=== PATIENT | female | born 1975 | race Caucasian/White ===

== ENCOUNTER 2020-12-07 22:43 | Observation (INO) ==
[2020-12-08 01:57] LABS: VBG HCO3 28 mEq/L (21-27); VBG PCO2 52 mmHg (41-51); VBG PH 7.35 pH Units (7.32-7.42); VBG PO2 36 mmHg (25-50)
[2020-12-08 01:58] LABS: Basophils # 0.1 K/mcL (0.0-0.2); Basophils % 0.7 %; Eosinophils # 0.1 K/mcL (0.0-0.6); Eosinophils % 0.5 %; Hematocrit 47.1 % (35.3-44.9); Hemoglobin 15.9 g/dL (11.5-15.4); Immature Granulocytes % 1.4 % (0-4); Lymphocytes % 27.7 %; Mean Corpuscular HGB Conc 33.8 g/dL (31.6-35.5); Mean Corpuscular Hemoglobin 29.2 pg (28.0-33.3); Mean Corpuscular Volume 86.4 fL (83.0-100.0); Monocytes # 1.1 K/mcL (0.0-1.3); Monocytes % 5.9 %; Neutrophils # 11.5 K/mcL (1.6-8.9); Platelet Count 335 K/mcL (140-400); Red Blood Count 5.45 M/mcL (3.82-4.97); Red Cell Distribution Width 11.9 % (11.5-14.5); Segmented Neutrophils % 63.8 %
[2020-12-08] MEDS ORDERED: 0.9 % Sodium Chloride 1,000 ML IVC ONE (02:00)
[2020-12-08 02:15] LABS: BUN/Creatinine Ratio 20 (6-26); Blood Urea Nitrogen 16 mg/dL (6-20); Calcium 9.1 mg/dL (8.6-10.3); Carbon Dioxide 28 mEq/L (23-29); Chloride 93 mEq/L (98-107); Glucose 408 mg/dL (70-105); Osmolality,Calculated 296 (280-300); Potassium 3.8 mEq/L (3.5-5.1); Sodium 134 mEq/L (136-145); eGFR For African Americans > 60 (> 60); eGFR For Non-African Americans > 60 (> 60)
[2020-12-08 02:22] LABS: Platelet Estimate Normal (Normal)
[2020-12-08] MEDS ORDERED: Cefepime HCl 2,000 MG in Water for inj. (sterile) 20 ML IVP ONE (03:29)
[2020-12-08] MEDS ORDERED: Vancomycin 2,000 MG/520 ML IV.SOLN IVPB ONE (04:00)
[2020-12-08] MEDS ORDERED: Naloxone 0.4 MG/ML INJ IVP PRN (05:02)
[2020-12-08] MEDS ORDERED: Melatonin 3 MG TABLET PO PRN (05:02)
[2020-12-08] MEDS ORDERED: Ondansetron 4 MG/2 ML VIAL IVP PRN (05:02)
[2020-12-08] MEDS ORDERED: *HR* Dextrose 50 % in Water (Vial) 50 ML VIAL IVP PRN (05:08)
[2020-12-08] MEDS ORDERED: D5% in Water 1,000 ML IVC PRN (05:08)
[2020-12-08] MEDS ORDERED: Dextrose Gel 15 GM/37.5 ML TUBE PO PRN ×2 (05:08)
[2020-12-08] MEDS ORDERED: 0.9 % Sodium Chloride 500 ML IVC ONE (05:13)
[2020-12-08 07:06] LABS: Bilirubin,Urine Negative (Negative); Blood,Urine Negative (Negative); Clarity,Urine Clear (Clear); Color,Urine Light-Yellow (Yellow); Glucose,Urine (UA) >=1000 mg/dL (Normal); Ketones,Urine Trace mg/dL (Negative); Leukocyte Esterase,Urine Negative (Negative); Mucus,Urine Few per lpf (None-Few); Nitrite,Urine Negative (Negative); Protein,Urine Trace mg/dL (Neg-Trace); RBC,Urine 0-3 per hpf (0-3); Specific Gravity,Urine > 1.030 (1.010-1.025); Squamous Epithelial Cell,Urine Few per hpf (None-Few); Urobilinogen,Urine Normal (Normal); WBC,Urine 0-3 per hpf (0-3)
[2020-12-08] MEDS: Insulin LISPRO 300 UNITS/3 ML VIAL SUBQ SCH ×6 (07:06→23:54)
[2020-12-08] MEDS: Insulin DETEMIR 100 UNIT/ML X5UNITS SUBQ SCH ×2 (07:06→21:02)
[2020-12-08 07:08] LABS: Hemoglobin 15.4 g/dL (11.5-15.4); Mean Corpuscular HGB Conc 33.5 g/dL (31.6-35.5); Mean Corpuscular Hemoglobin 29.7 pg (28.0-33.3); Mean Corpuscular Volume 88.6 fL (83.0-100.0); Mean Platelet Volume 9.8 fL (9.4-12.4); Platelet Count 248 K/mcL (140-400); Red Blood Count 5.19 M/mcL (3.82-4.97); Red Cell Distribution Width 11.9 % (11.5-14.5); White Blood Count 14.7 K/mcL (4.3-11.1)
[2020-12-08 07:31] LABS: BUN/Creatinine Ratio 20 (6-26); Blood Urea Nitrogen 13 mg/dL (6-20); Calcium 8.5 mg/dL (8.6-10.3); Carbon Dioxide 24 mEq/L (23-29); Chloride 98 mEq/L (98-107); Glucose 301 mg/dL (70-105); Osmolality,Calculated 295 (280-300); Potassium 3.6 mEq/L (3.5-5.1); Sodium 137 mEq/L (136-145); eGFR For African Americans > 60 (> 60); eGFR For Non-African Americans > 60 (> 60)
[2020-12-08] MEDS ORDERED: Piperacillin/Tazobactam 3.375 GM in 0.9 % Sodium Chloride Mini Bag 100 ML IVPB SCH (08:00)
[2020-12-08 10:03] LABS: C-Reactive Protein 26 mg/L (Less than 10)
[2020-12-08] MEDS: Cefepime HCl 2,000 MG in 0.9 % Sodium Chloride Mini Bag 100 ML IVPB SCH (16:59)
[2020-12-08] MEDS: Vancomycin 1,500 MG/265 ML IV.SOLN IVPB SCH (17:42)
[2020-12-09] MEDS: Cefepime HCl 2,000 MG in 0.9 % Sodium Chloride Mini Bag 100 ML IVPB SCH ×2 (04:28→15:14)
[2020-12-09] MEDS: Vancomycin 1,500 MG/265 ML IV.SOLN IVPB SCH ×2 (05:01→16:30)
[2020-12-09] MEDS: Insulin LISPRO 300 UNITS/3 ML VIAL SUBQ SCH ×5 (05:40→21:41)
[2020-12-09 10:15] LABS: Hematocrit 42.3 % (35.3-44.9); Hemoglobin 14.1 g/dL (11.5-15.4); Mean Corpuscular HGB Conc 33.3 g/dL (31.6-35.5); Mean Corpuscular Hemoglobin 29.4 pg (28.0-33.3); Mean Corpuscular Volume 88.1 fL (83.0-100.0); Platelet Count 243 K/mcL (140-400); Red Cell Distribution Width 11.9 % (11.5-14.5); White Blood Count 10.2 K/mcL (4.3-11.1)
[2020-12-09 10:31] LABS: BUN/Creatinine Ratio 19 (6-26); Blood Urea Nitrogen 11 mg/dL (6-20); Calcium 8.1 mg/dL (8.6-10.3); Carbon Dioxide 27 mEq/L (23-29); Chloride 103 mEq/L (98-107); Glucose 225 mg/dL (70-105); Magnesium 1.7 mg/dL (1.6-2.6); Osmolality,Calculated 288 (280-300); Potassium 3.7 mEq/L (3.5-5.1); Sodium 136 mEq/L (136-145); eGFR For African Americans > 60 (> 60); eGFR For Non-African Americans > 60 (> 60)
[2020-12-09] MEDS ORDERED: diazePAM 5 MG TABLET PO PRN (13:04)
[2020-12-09] MEDS: Gabapentin 400 MG CAPSULE PO SCH ×2 (15:07→21:41)
[2020-12-09] MEDS: Vancomycin 1,750 MG/517.5 ML IV.SOLN IVPB SCH (17:40)
[2020-12-09] MEDS ORDERED: Insulin DETEMIR 100 UNIT/ML X5UNITS SUBQ SCH (21:00)
[2020-12-10] MEDS: Insulin LISPRO 300 UNITS/3 ML VIAL SUBQ SCH ×5 (00:16→16:57)
[2020-12-10 03:40] LABS: Hematocrit 41.1 % (35.3-44.9); Hemoglobin 13.6 g/dL (11.5-15.4); Mean Corpuscular HGB Conc 33.1 g/dL (31.6-35.5); Mean Corpuscular Hemoglobin 29.1 pg (28.0-33.3); Mean Platelet Volume 9.9 fL (9.4-12.4); Platelet Count 237 K/mcL (140-400); Red Blood Count 4.67 M/mcL (3.82-4.97); Red Cell Distribution Width 11.9 % (11.5-14.5); White Blood Count 12.2 K/mcL (4.3-11.1)
[2020-12-10] MEDS: Cefepime HCl 2,000 MG in 0.9 % Sodium Chloride Mini Bag 100 ML IVPB SCH ×2 (04:54→15:48)
[2020-12-10 04:59] LABS: BUN/Creatinine Ratio 28 (6-26); Blood Urea Nitrogen 16 mg/dL (6-20); Calcium 8.2 mg/dL (8.6-10.3); Carbon Dioxide 24 mEq/L (23-29); Chloride 103 mEq/L (98-107); Glucose 233 mg/dL (70-105); Osmolality,Calculated 291 (280-300); Potassium 4.1 mEq/L (3.5-5.1); Sodium 136 mEq/L (136-145); eGFR For African Americans > 60 (> 60); eGFR For Non-African Americans > 60 (> 60)
[2020-12-10] MEDS: Vancomycin 1,750 MG/517.5 ML IV.SOLN IVPB SCH ×2 (05:38→16:46)
[2020-12-10] MEDS: Gabapentin 400 MG CAPSULE PO SCH ×2 (08:50→14:33)
[2020-12-10] MEDS ORDERED: Aspirin Enteric Coated 81 MG Tablet PO SCH (09:00)
[2020-12-10] MEDS ORDERED: lisinopriL 5 MG TABLET PO SCH (09:00)
[2020-12-10 14:47] VITALS: BP 139/82
== END 2020-12-10 19:20 | disposition home or self-care (01) ==
LOC: EMEROOARM 22:43 → 3ANU 22:43 → SUATTDRO 12-08 05:02 → 3ANU 12-08 06:11
PROVIDERS: ADMIT Student in an Organized Health Care Education/Training Program; ATTEND Internal Medicine

== ENCOUNTER 2021-06-13 12:05 | Inpatient (IN) ==
[2021-06-13] MEDS ORDERED: Ipratropium/Albuterol Neb 3 ML IH ONE (12:20)
[2021-06-13] MEDS ORDERED: Acetaminophen 325 MG TABLET PO ONE (12:21)
[2021-06-13] MEDS ORDERED: 0.9 % Sodium Chloride 500 ML IVC ONE (12:21)
[2021-06-13 13:15] LABS: Basophils % 0.3 %; Hematocrit 50.6 % (35.3-44.9); Hemoglobin 17.1 g/dL (11.5-15.4); Immature Granulocytes % 0.9 % (0-4); Lymphocytes # 1.1 K/mcL (0.6-4.6); Mean Corpuscular HGB Conc 33.8 g/dL (31.6-35.5); Mean Corpuscular Hemoglobin 28.4 pg (28.0-33.3); Mean Corpuscular Volume 84.1 fL (83.0-100.0); Monocytes # 0.6 K/mcL (0.0-1.3); Monocytes % 9.7 %; Neutrophils # 4.7 K/mcL (1.6-8.9); Platelet Count 292 K/mcL (140-400); Red Blood Count 6.02 M/mcL (3.82-4.97); Red Cell Distribution Width 11.9 % (11.5-14.5); Segmented Neutrophils % 72.1 %; White Blood Count 6.5 K/mcL (4.3-11.1)
[2021-06-13 13:57] LABS: Alanine Aminotransferase 11 Units/L (7-52); Alkaline Phosphatase 74 Units/L (34-104); Aspartate Amino Transferase 20 Units/L (13-39); BUN/Creatinine Ratio 17 (6-26); Bilirubin,Direct 0.1 mg/dL (0.0-0.2); Bilirubin,Indirect 0.3 mg/dL (0.0-1.0); Bilirubin,Total 0.4 mg/dL (0.3-1.0); Blood Urea Nitrogen 14 mg/dL (6-20); Carbon Dioxide 21 mEq/L (23-29); Chloride 97 mEq/L (98-107); Globulin 3.9 g/dL (2.4-3.5); Glucose 359 mg/dL (70-105); Osmolality,Calculated 293 (280-300); Potassium 3.9 mEq/L (3.5-5.1); Sodium 134 mEq/L (136-145); Total Protein 7.9 g/dL (6.4-8.9); Troponin I < 0.03 ng/mL (< 0.04); eGFR For African Americans > 60 (> 60); eGFR For Non-African Americans > 60 (> 60)
[2021-06-13] MEDS ORDERED: Melatonin 3 MG TABLET PO PRN (14:38)
[2021-06-13] MEDS ORDERED: Naloxone 0.4 MG/ML INJ IVP PRN (14:38)
[2021-06-13] MEDS ORDERED: *HR* Dextrose 50 % in Water (Syg) 50 ML SYRINGE IVP PRN (14:45)
[2021-06-13] MEDS ORDERED: Insulin DETEMIR 100 UNIT/ML X5UNITS SUBQ SCH (14:45)
[2021-06-13] MEDS ORDERED: D5% in Water 1,000 ML IVC PRN (14:45)
[2021-06-13] MEDS ORDERED: Dextrose Gel 15 GM/37.5 ML TUBE PO PRN ×2 (14:45)
[2021-06-13 15:07] LABS: C-Reactive Protein 105 mg/L (Less than 10)
[2021-06-13] MEDS ORDERED: *HR* OxyCODONE/APAP 5/325 TABLET PO ONE (15:13)
[2021-06-13 15:30] LABS: Bacteria,Urine Few per hpf (None-Few); Bilirubin,Urine Negative (Negative); Blood,Urine Large (Negative); Clarity,Urine Clear (Clear); Color,Urine Light-Yellow (Yellow); Glucose,Urine (UA) >=1000 mg/dL (Normal); Ketones,Urine >150 mg/dL (Negative); Leukocyte Esterase,Urine Negative (Negative); Mucus,Urine Few per lpf (None-Few); Nitrite,Urine Negative (Negative); Protein,Urine >=300 mg/dL (Neg-Trace); RBC,Urine 50-100 per hpf (0-3); Specific Gravity,Urine > 1.030 (1.010-1.025); Squamous Epithelial Cell,Urine Few per hpf (None-Few); Urobilinogen,Urine Normal (Normal); WBC,Urine 0-3 per hpf (0-3)
[2021-06-13] MEDS: diazePAM 2 MG TABLET PO PRN (16:44)
[2021-06-13] MEDS: Insulin DETEMIR 100 UNIT/ML X5UNITS SUBQ SCH ×2 (18:31→19:19)
[2021-06-13] MEDS: Gabapentin 300 MG CAPSULE PO SCH ×2 (18:37→19:19)
[2021-06-13] MEDS: Insulin LISPRO 300 UNITS/3 ML VIAL SUBQ SCH ×2 (18:50→20:19)
[2021-06-14] MEDS: Acetaminophen 325 MG TABLET PO PRN (02:08)
[2021-06-14] MEDS: diazePAM 2 MG TABLET PO PRN (02:09)
[2021-06-14] MEDS ORDERED: *HR* Enoxaparin 40 MG/0.4 ML SYRINGE SQ SCH (06:00)
[2021-06-14] MEDS: Gabapentin 300 MG CAPSULE PO SCH ×3 (08:21→20:48)
[2021-06-14] MEDS: Insulin LISPRO 300 UNITS/3 ML VIAL SUBQ SCH ×4 (08:23→20:47)
[2021-06-14] MEDS: Insulin DETEMIR 100 UNIT/ML X5UNITS SUBQ SCH ×2 (08:23→20:47)
[2021-06-14] MEDS ORDERED: *HR* Labetalol 20 MG/4 ML SYRINGE IVP PRN (15:41)
[2021-06-14] MEDS: Ipratropium 1 PUFF INHALER IH SCH ×2 (15:53→19:56)
[2021-06-14] MEDS: *HR* Enoxaparin 40 MG/0.4 ML SYRINGE SQ SCH (17:49)
[2021-06-15] MEDS: Ipratropium 1 PUFF INHALER IH SCH ×7 (00:28→23:27)
[2021-06-15] MEDS: diazePAM 2 MG TABLET PO PRN ×2 (03:32→20:36)
[2021-06-15 03:33] LABS: Basophils % 0.4 %; Hemoglobin 16.9 g/dL (11.5-15.4); Immature Granulocytes % 0.8 % (0-4); Lymphocytes # 1.4 K/mcL (0.6-4.6); Mean Corpuscular HGB Conc 33.8 g/dL (31.6-35.5); Mean Corpuscular Volume 82.9 fL (83.0-100.0); Mean Platelet Volume 9.6 fL (9.4-12.4); Monocytes # 1.1 K/mcL (0.0-1.3); Platelet Count 360 K/mcL (140-400); Red Blood Count 6.03 M/mcL (3.82-4.97); Segmented Neutrophils % 75.8 %
[2021-06-15 03:35] LABS: Neutrophils # 8.3 K/mcL (1.6-8.9)
[2021-06-15 04:10] LABS: Alanine Aminotransferase 8 Units/L (7-52); Albumin 3.6 g/dL (3.5-5.7); Alkaline Phosphatase 63 Units/L (34-104); Aspartate Amino Transferase 14 Units/L (13-39); BUN/Creatinine Ratio 23 (6-26); Bilirubin,Total 0.5 mg/dL (0.3-1.0); Blood Urea Nitrogen 21 mg/dL (6-20); Calcium 9.1 mg/dL (8.6-10.3); Carbon Dioxide 23 mEq/L (23-29); Chloride 98 mEq/L (98-107); Globulin 3.7 g/dL (2.4-3.5); Glucose 325 mg/dL (70-105); Osmolality,Calculated 296 (280-300); Potassium 3.6 mEq/L (3.5-5.1); Sodium 135 mEq/L (136-145); Total Protein 7.3 g/dL (6.4-8.9); eGFR For African Americans > 60 (> 60); eGFR For Non-African Americans > 60 (> 60)
[2021-06-15] MEDS: *HR* Enoxaparin 40 MG/0.4 ML SYRINGE SQ SCH ×2 (05:55→17:14)
[2021-06-15] MEDS: Insulin LISPRO 300 UNITS/3 ML VIAL SUBQ SCH ×6 (07:49→21:14)
[2021-06-15] MEDS: Acetaminophen 325 MG TABLET PO PRN (07:49)
[2021-06-15] MEDS: Insulin DETEMIR 100 UNIT/ML X5UNITS SUBQ SCH ×3 (07:49→21:13)
[2021-06-15] MEDS: Gabapentin 300 MG CAPSULE PO SCH ×3 (07:49→20:35)
[2021-06-15] MEDS ORDERED: Dexamethasone Sodium Phos/PF 10 MG/ML VIAL IVP ONE (09:21)
[2021-06-15] MEDS ORDERED: Insulin DETEMIR 100 UNIT/ML X5UNITS SUBQ ONE (09:21)
[2021-06-15] MEDS: Dexamethasone Sodium Phos/PF 10 MG/ML VIAL IVP SCH (10:11)
[2021-06-15] MEDS ORDERED: Isovue-370 500 ML BOTTLE IVP ONE (13:56)
[2021-06-16] MEDS: Ipratropium 1 PUFF INHALER IH SCH ×5 (03:23→19:54)
[2021-06-16] MEDS: *HR* Enoxaparin 40 MG/0.4 ML SYRINGE SQ SCH ×2 (05:11→17:42)
[2021-06-16] MEDS: Gabapentin 300 MG CAPSULE PO SCH ×3 (08:17→21:43)
[2021-06-16] MEDS: Dexamethasone Sodium Phos/PF 10 MG/ML VIAL IVP SCH (08:18)
[2021-06-16] MEDS: Insulin LISPRO 300 UNITS/3 ML VIAL SUBQ SCH ×7 (08:18→21:45)
[2021-06-16] MEDS: Insulin DETEMIR 100 UNIT/ML X5UNITS SUBQ SCH ×2 (08:19→21:51)
[2021-06-16] MEDS ORDERED: Furosemide 20 MG/2 ML VIAL IVP ONE (09:00)
[2021-06-16 11:04] LABS: VBG HCO3 27 mEq/L (21-27); VBG PCO2 36 mmHg (41-51); VBG PH 7.49 pH Units (7.32-7.42); VBG PO2 69 mmHg (25-50)
[2021-06-16 11:13] LABS: Fibrinogen 578 mg/dL (169-393)
[2021-06-16 11:16] LABS: D-Dimer 447 ng/mLFEU (0-500)
[2021-06-16 11:24] LABS: BUN/Creatinine Ratio 28 (6-26); Blood Urea Nitrogen 18 mg/dL (6-20); Calcium 8.6 mg/dL (8.6-10.3); Carbon Dioxide 26 mEq/L (23-29); Chloride 97 mEq/L (98-107); Glucose 312 mg/dL (70-105); Magnesium 1.8 mg/dL (1.6-2.6); Osmolality,Calculated 292 (280-300); Phosphorous 2.5 mg/dL (2.7-4.5); Potassium 3.3 mEq/L (3.5-5.1); Sodium 134 mEq/L (136-145); eGFR For African Americans > 60 (> 60); eGFR For Non-African Americans > 60 (> 60)
[2021-06-16 11:42] LABS: Ferritin 664 ng/mL (10-120)
[2021-06-17] MEDS: Ipratropium 1 PUFF INHALER IH SCH ×7 (00:19→23:55)
[2021-06-17 03:20] LABS: BUN/Creatinine Ratio 25 (6-26); Blood Urea Nitrogen 19 mg/dL (6-20); C-Reactive Protein 19 mg/L (Less than 10); Calcium 8.8 mg/dL (8.6-10.3); Carbon Dioxide 28 mEq/L (23-29); Chloride 99 mEq/L (98-107); Glucose 183 mg/dL (70-105); Magnesium 1.9 mg/dL (1.6-2.6); Osmolality,Calculated 295 (280-300); Phosphorous 3.1 mg/dL (2.7-4.5); Potassium 3.2 mEq/L (3.5-5.1); Sodium 139 mEq/L (136-145); eGFR For African Americans > 60 (> 60); eGFR For Non-African Americans > 60 (> 60)
[2021-06-17] MEDS: *HR* Enoxaparin 40 MG/0.4 ML SYRINGE SQ SCH ×2 (05:56→17:40)
[2021-06-17] MEDS: Dexamethasone Sodium Phos/PF 10 MG/ML VIAL IVP SCH (08:58)
[2021-06-17] MEDS: diazePAM 2 MG TABLET PO PRN ×2 (08:58→17:40)
[2021-06-17] MEDS: lisinopriL 10 MG TABLET PO SCH (08:58)
[2021-06-17] MEDS: Gabapentin 300 MG CAPSULE PO SCH ×3 (08:58→20:51)
[2021-06-17] MEDS: Insulin LISPRO 300 UNITS/3 ML VIAL SUBQ SCH ×7 (09:00→20:49)
[2021-06-17] MEDS: Insulin DETEMIR 100 UNIT/ML X5UNITS SUBQ SCH ×2 (09:07→20:49)
[2021-06-17] MEDS: Acetaminophen 325 MG TABLET PO PRN (14:56)
[2021-06-18] MEDS: Ipratropium 1 PUFF INHALER IH SCH ×5 (03:37→21:17)
[2021-06-18 05:05] LABS: Basophils % 0.3 %; Hematocrit 44.8 % (35.3-44.9); Hemoglobin 15.4 g/dL (11.5-15.4); Immature Granulocytes % 0.9 % (0-4); Lymphocytes # 1.9 K/mcL (0.6-4.6); Lymphocytes % 18.4 %; Mean Corpuscular HGB Conc 34.4 g/dL (31.6-35.5); Mean Corpuscular Hemoglobin 28.9 pg (28.0-33.3); Mean Corpuscular Volume 84.1 fL (83.0-100.0); Mean Platelet Volume 10.3 fL (9.4-12.4); Monocytes # 0.9 K/mcL (0.0-1.3); Monocytes % 9.3 %; Neutrophils # 7.2 K/mcL (1.6-8.9); Platelet Count 352 K/mcL (140-400); Red Blood Count 5.33 M/mcL (3.82-4.97); Red Cell Distribution Width 11.9 % (11.5-14.5); Segmented Neutrophils % 71.1 %; White Blood Count 10.1 K/mcL (4.3-11.1)
[2021-06-18] MEDS: *HR* Enoxaparin 40 MG/0.4 ML SYRINGE SQ SCH ×2 (05:19→16:35)
[2021-06-18 05:24] LABS: BUN/Creatinine Ratio 23 (6-26); Blood Urea Nitrogen 16 mg/dL (6-20); Carbon Dioxide 26 mEq/L (23-29); Chloride 100 mEq/L (98-107); Glucose 229 mg/dL (70-105); Magnesium 1.9 mg/dL (1.6-2.6); Osmolality,Calculated 288 (280-300); Phosphorous 3.6 mg/dL (2.7-4.5); Potassium 3.5 mEq/L (3.5-5.1); Sodium 135 mEq/L (136-145); eGFR For African Americans > 60 (> 60); eGFR For Non-African Americans > 60 (> 60)
[2021-06-18] MEDS: Dexamethasone Sodium Phos/PF 10 MG/ML VIAL IVP SCH (07:43)
[2021-06-18] MEDS: lisinopriL 10 MG TABLET PO SCH (07:44)
[2021-06-18] MEDS: Insulin LISPRO 300 UNITS/3 ML VIAL SUBQ SCH ×9 (07:44→20:40)
[2021-06-18] MEDS: Gabapentin 300 MG CAPSULE PO SCH ×3 (07:44→20:39)
[2021-06-18] MEDS: Insulin DETEMIR 100 UNIT/ML X5UNITS SUBQ SCH ×2 (07:44→20:39)
[2021-06-18] MEDS: *HR* OxyCODONE/APAP 5/325 TABLET PO PRN (20:57)
[2021-06-19] MEDS: Ipratropium 1 PUFF INHALER IH SCH ×7 (00:12→23:44)
[2021-06-19] MEDS: *HR* Enoxaparin 40 MG/0.4 ML SYRINGE SQ SCH ×2 (06:23→16:58)
[2021-06-19 07:22] LABS: Fibrinogen 402 mg/dL (169-393)
[2021-06-19] MEDS: Insulin DETEMIR 100 UNIT/ML X5UNITS SUBQ SCH ×2 (07:24→20:02)
[2021-06-19] MEDS: Insulin LISPRO 300 UNITS/3 ML VIAL SUBQ SCH ×7 (07:24→20:58)
[2021-06-19] MEDS: Dexamethasone Sodium Phos/PF 10 MG/ML VIAL IVP SCH (07:24)
[2021-06-19] MEDS: lisinopriL 10 MG TABLET PO SCH (07:25)
[2021-06-19] MEDS: Gabapentin 300 MG CAPSULE PO SCH ×3 (07:25→20:01)
[2021-06-19 07:26] LABS: D-Dimer 286 ng/mLFEU (0-500)
[2021-06-19 07:40] LABS: BUN/Creatinine Ratio 23 (6-26); Blood Urea Nitrogen 15 mg/dL (6-20); Calcium 8.1 mg/dL (8.6-10.3); Carbon Dioxide 24 mEq/L (23-29); Chloride 98 mEq/L (98-107); Glucose 294 mg/dL (70-105); Lactate Dehydrogenase 234 Units/L (140-271); Magnesium 1.7 mg/dL (1.6-2.6); Osmolality,Calculated 288 (280-300); Phosphorous 3.1 mg/dL (2.7-4.5); Potassium 3.3 mEq/L (3.5-5.1); Sodium 133 mEq/L (136-145); eGFR For African Americans > 60 (> 60); eGFR For Non-African Americans > 60 (> 60)
[2021-06-19 07:44] LABS: Ferritin 458 ng/mL (10-120)
[2021-06-19] MEDS: Furosemide 20 MG/2 ML VIAL IVP SCH (22:33)
[2021-06-19] MEDS: *HR* OxyCODONE/APAP 5/325 TABLET PO PRN (22:42)
[2021-06-19] MEDS: diazePAM 2 MG TABLET PO PRN (22:42)
[2021-06-20 01:08] LABS: BUN/Creatinine Ratio 17 (6-26); Blood Urea Nitrogen 12 mg/dL (6-20); Calcium 8.3 mg/dL (8.6-10.3); Carbon Dioxide 23 mEq/L (23-29); Chloride 96 mEq/L (98-107); Glucose 310 mg/dL (70-105); Magnesium 1.6 mg/dL (1.6-2.6); Osmolality,Calculated 284 (280-300); Phosphorous 3.2 mg/dL (2.7-4.5); Potassium 3.9 mEq/L (3.5-5.1); Sodium 131 mEq/L (136-145); eGFR For African Americans > 60 (> 60); eGFR For Non-African Americans > 60 (> 60)
[2021-06-20] MEDS: Ipratropium 1 PUFF INHALER IH SCH ×6 (04:10→23:48)
[2021-06-20] MEDS: *HR* Enoxaparin 40 MG/0.4 ML SYRINGE SQ SCH ×2 (06:06→17:02)
[2021-06-20] MEDS: Insulin LISPRO 300 UNITS/3 ML VIAL SUBQ SCH ×7 (08:39→21:26)
[2021-06-20] MEDS: Insulin DETEMIR 100 UNIT/ML X5UNITS SUBQ SCH ×2 (08:40→21:17)
[2021-06-20] MEDS: Gabapentin 300 MG CAPSULE PO SCH ×3 (08:40→21:17)
[2021-06-20] MEDS: diazePAM 2 MG TABLET PO PRN ×2 (08:40→23:23)
[2021-06-20] MEDS: lisinopriL 10 MG TABLET PO SCH (08:40)
[2021-06-20] MEDS: Dexamethasone Sodium Phos/PF 10 MG/ML VIAL IVP SCH (08:41)
[2021-06-20] MEDS: Furosemide 20 MG/2 ML VIAL IVP SCH ×2 (08:41→21:21)
[2021-06-20] MEDS: *HR* OxyCODONE/APAP 5/325 TABLET PO PRN ×2 (10:49→23:23)
[2021-06-20] MEDS: Magic Mouthwash 10 ML UD Cup PO SCH ×2 (13:42→17:02)
[2021-06-20] MEDS: Fluconazole 150 MG TABLET PO SCH (14:59)
[2021-06-21] MEDS: Ipratropium 1 PUFF INHALER IH SCH ×5 (03:52→20:20)
[2021-06-21 06:15] LABS: Basophils # 0.1 K/mcL (0.0-0.2); Basophils % 0.5 %; Eosinophils # 0.1 K/mcL (0.0-0.6); Eosinophils % 0.7 %; Hemoglobin 14.2 g/dL (11.5-15.4); Immature Granulocytes % 3.6 % (0-4); Lymphocytes # 1.9 K/mcL (0.6-4.6); Lymphocytes % 16.7 %; Mean Corpuscular HGB Conc 34.6 g/dL (31.6-35.5); Mean Corpuscular Hemoglobin 28.6 pg (28.0-33.3); Mean Corpuscular Volume 82.7 fL (83.0-100.0); Mean Platelet Volume 11.2 fL (9.4-12.4); Monocytes # 1.3 K/mcL (0.0-1.3); Monocytes % 11.8 %; Neutrophils # 7.4 K/mcL (1.6-8.9); Platelet Count 321 K/mcL (140-400); Red Blood Count 4.96 M/mcL (3.82-4.97); Red Cell Distribution Width 11.9 % (11.5-14.5); Segmented Neutrophils % 66.7 %; White Blood Count 11.2 K/mcL (4.3-11.1)
[2021-06-21] MEDS: *HR* Enoxaparin 40 MG/0.4 ML SYRINGE SQ SCH ×2 (06:16→17:08)
[2021-06-21 06:29] LABS: BUN/Creatinine Ratio 26 (6-26); Blood Urea Nitrogen 16 mg/dL (6-20); Calcium 8.5 mg/dL (8.6-10.3); Carbon Dioxide 25 mEq/L (23-29); Chloride 95 mEq/L (98-107); Glucose 329 mg/dL (70-105); Magnesium 1.7 mg/dL (1.6-2.6); Osmolality,Calculated 286 (280-300); Phosphorous 3.9 mg/dL (2.7-4.5); Potassium 4.1 mEq/L (3.5-5.1); Sodium 131 mEq/L (136-145); eGFR For African Americans > 60 (> 60); eGFR For Non-African Americans > 60 (> 60)
[2021-06-21] MEDS: Magic Mouthwash 10 ML UD Cup PO SCH ×3 (09:40→17:08)
[2021-06-21] MEDS: Furosemide 20 MG/2 ML VIAL IVP SCH ×2 (09:40→21:54)
[2021-06-21] MEDS: lisinopriL 10 MG TABLET PO SCH (09:41)
[2021-06-21] MEDS: Gabapentin 300 MG CAPSULE PO SCH ×3 (09:41→22:07)
[2021-06-21] MEDS: diazePAM 2 MG TABLET PO PRN (09:42)
[2021-06-21] MEDS: Dexamethasone Sodium Phos/PF 10 MG/ML VIAL IVP SCH (09:42)
[2021-06-21] MEDS: Insulin LISPRO 300 UNITS/3 ML VIAL SUBQ SCH ×7 (09:43→21:55)
[2021-06-21] MEDS: Insulin DETEMIR 100 UNIT/ML X5UNITS SUBQ SCH ×2 (09:44→22:03)
[2021-06-21] MEDS: *HR* OxyCODONE/APAP 5/325 TABLET PO PRN ×2 (11:33→23:28)
[2021-06-22] MEDS: Ipratropium 1 PUFF INHALER IH SCH ×8 (00:17→23:44)
[2021-06-22] MEDS: Nystatin POWDER 30 GM BOTTLE TP SCH ×4 (03:56→22:19)
[2021-06-22] MEDS: *HR* Enoxaparin 40 MG/0.4 ML SYRINGE SQ SCH ×2 (05:33→16:34)
[2021-06-22] MEDS: Insulin LISPRO 300 UNITS/3 ML VIAL SUBQ SCH ×7 (07:26→22:17)
[2021-06-22] MEDS: Insulin DETEMIR 100 UNIT/ML X5UNITS SUBQ SCH ×2 (07:26→22:16)
[2021-06-22] MEDS: Magic Mouthwash 10 ML UD Cup PO SCH ×3 (07:27→16:35)
[2021-06-22] MEDS: Furosemide 20 MG/2 ML VIAL IVP SCH ×2 (07:27→22:07)
[2021-06-22] MEDS: Dexamethasone Sodium Phos/PF 10 MG/ML VIAL IVP SCH (07:27)
[2021-06-22] MEDS: lisinopriL 10 MG TABLET PO SCH (07:28)
[2021-06-22] MEDS: Gabapentin 300 MG CAPSULE PO SCH ×3 (07:28→22:07)
[2021-06-22] MEDS: *HR* OxyCODONE/APAP 5/325 TABLET PO PRN ×2 (11:30→23:43)
[2021-06-23] MEDS: Ipratropium 1 PUFF INHALER IH SCH ×6 (04:08→23:17)
[2021-06-23] MEDS: *HR* Enoxaparin 40 MG/0.4 ML SYRINGE SQ SCH ×2 (06:29→16:53)
[2021-06-23 07:45] LABS: Hematocrit 44.4 % (35.3-44.9); Hemoglobin 14.9 g/dL (11.5-15.4); Mean Corpuscular HGB Conc 33.6 g/dL (31.6-35.5); Mean Corpuscular Hemoglobin 28.4 pg (28.0-33.3); Mean Corpuscular Volume 84.6 fL (83.0-100.0); Mean Platelet Volume 10.2 fL (9.4-12.4); Platelet Count 487 K/mcL (140-400); Red Blood Count 5.25 M/mcL (3.82-4.97); Red Cell Distribution Width 11.9 % (11.5-14.5); White Blood Count 16.6 K/mcL (4.3-11.1)
[2021-06-23 07:58] LABS: BUN/Creatinine Ratio 39 (6-26); Blood Urea Nitrogen 29 mg/dL (6-20); Calcium 9.1 mg/dL (8.6-10.3); Carbon Dioxide 31 mEq/L (23-29); Chloride 92 mEq/L (98-107); Glucose 204 mg/dL (70-105); Magnesium 1.9 mg/dL (1.6-2.6); Osmolality,Calculated 284 (280-300); Potassium 4.2 mEq/L (3.5-5.1); Sodium 131 mEq/L (136-145); eGFR For African Americans > 60 (> 60); eGFR For Non-African Americans > 60 (> 60)
[2021-06-23 08:24] LABS: Eosinophils # 0.2 K/mcL (0.0-0.6); Lymphocytes # 4.3 K/mcL (0.6-4.6)
[2021-06-23] MEDS: Gabapentin 300 MG CAPSULE PO SCH ×3 (10:01→21:51)
[2021-06-23] MEDS: lisinopriL 10 MG TABLET PO SCH (10:01)
[2021-06-23] MEDS: Dexamethasone Sodium Phos/PF 10 MG/ML VIAL IVP SCH (10:02)
[2021-06-23] MEDS: Furosemide 20 MG/2 ML VIAL IVP SCH ×2 (10:02→21:51)
[2021-06-23] MEDS: Insulin LISPRO 300 UNITS/3 ML VIAL SUBQ SCH ×7 (10:02→21:52)
[2021-06-23] MEDS: Nystatin POWDER 30 GM BOTTLE TP SCH ×3 (10:03→21:52)
[2021-06-23] MEDS: Magic Mouthwash 10 ML UD Cup PO SCH ×2 (10:03→14:47)
[2021-06-23] MEDS: Insulin DETEMIR 100 UNIT/ML X5UNITS SUBQ SCH ×2 (10:06→21:51)
[2021-06-23] MEDS: *HR* OxyCODONE/APAP 5/325 TABLET PO PRN (12:05)
[2021-06-23] MEDS: Fluconazole 150 MG TABLET PO SCH (14:47)
[2021-06-23] MEDS ORDERED: Insulin LISPRO 300 UNITS/3 ML VIAL SUBQ ONE (18:05)
[2021-06-24] MEDS: *HR* OxyCODONE/APAP 5/325 TABLET PO PRN ×2 (00:28→12:11)
[2021-06-24] MEDS: Ipratropium 1 PUFF INHALER IH SCH ×6 (03:12→23:46)
[2021-06-24] MEDS: *HR* Enoxaparin 40 MG/0.4 ML SYRINGE SQ SCH ×2 (06:42→17:16)
[2021-06-24] MEDS: Nystatin POWDER 30 GM BOTTLE TP SCH ×3 (08:22→20:01)
[2021-06-24] MEDS: Insulin DETEMIR 100 UNIT/ML X5UNITS SUBQ SCH ×2 (08:22→20:05)
[2021-06-24] MEDS: Dexamethasone Sodium Phos/PF 10 MG/ML VIAL IVP SCH (08:23)
[2021-06-24] MEDS: Magic Mouthwash 10 ML UD Cup PO SCH ×3 (08:23→17:16)
[2021-06-24] MEDS: lisinopriL 10 MG TABLET PO SCH (08:23)
[2021-06-24] MEDS: Gabapentin 300 MG CAPSULE PO SCH ×3 (08:23→19:55)
[2021-06-24] MEDS: Furosemide 20 MG/2 ML VIAL IVP SCH ×2 (08:23→19:56)
[2021-06-24] MEDS: Insulin LISPRO 300 UNITS/3 ML VIAL SUBQ SCH ×7 (08:25→19:56)
[2021-06-24 10:41] LABS: Hemoglobin 15.7 g/dL (11.5-15.4); Mean Corpuscular HGB Conc 34.1 g/dL (31.6-35.5); Mean Corpuscular Hemoglobin 28.5 pg (28.0-33.3); Mean Corpuscular Volume 83.5 fL (83.0-100.0); Mean Platelet Volume 9.8 fL (9.4-12.4); Monocytes # 1.2 K/mcL (0.0-1.3); Platelet Count 561 K/mcL (140-400); Red Blood Count 5.51 M/mcL (3.82-4.97); Red Cell Distribution Width 11.9 % (11.5-14.5); White Blood Count 19.6 K/mcL (4.3-11.1)
[2021-06-24 11:05] LABS: BUN/Creatinine Ratio 37 (6-26); Blood Urea Nitrogen 30 mg/dL (6-20); Calcium 9.4 mg/dL (8.6-10.3); Carbon Dioxide 26 mEq/L (23-29); Chloride 92 mEq/L (98-107); Glucose 263 mg/dL (70-105); Osmolality,Calculated 283 (280-300); Potassium 4.6 mEq/L (3.5-5.1); Sodium 129 mEq/L (136-145); eGFR For African Americans > 60 (> 60); eGFR For Non-African Americans > 60 (> 60)
[2021-06-24 12:15] LABS: Lymphocytes # 3.7 K/mcL (0.6-4.6); Neutrophils # 13.3 K/mcL (1.6-8.9); Platelet Estimate Increased (Normal); Reactive Lymphocytes Present (Not Present)
[2021-06-25] MEDS: *HR* OxyCODONE/APAP 5/325 TABLET PO PRN (00:11)
[2021-06-25] MEDS: Ipratropium 1 PUFF INHALER IH SCH ×4 (03:57→16:24)
[2021-06-25] MEDS: *HR* Enoxaparin 40 MG/0.4 ML SYRINGE SQ SCH (05:13)
[2021-06-25 06:42] VITALS: BP 141/87; PULSE 101; TEMP 98.6
[2021-06-25 08:02] LABS: Hematocrit 46.2 % (35.3-44.9); Hemoglobin 15.7 g/dL (11.5-15.4); Mean Corpuscular Hemoglobin 29.7 pg (28.0-33.3); Mean Corpuscular Volume 87.3 fL (83.0-100.0); Mean Platelet Volume 10.2 fL (9.4-12.4); Platelet Count 525 K/mcL (140-400); Red Blood Count 5.29 M/mcL (3.82-4.97); White Blood Count 21.3 K/mcL (4.3-11.1)
[2021-06-25 08:15] LABS: BUN/Creatinine Ratio 47 (6-26); Blood Urea Nitrogen 32 mg/dL (6-20); Calcium 9.1 mg/dL (8.6-10.3); Carbon Dioxide 26 mEq/L (23-29); Chloride 94 mEq/L (98-107); Glucose 172 mg/dL (70-105); Osmolality,Calculated 281 (280-300); Potassium 4.3 mEq/L (3.5-5.1); Sodium 130 mEq/L (136-145); eGFR For African Americans > 60 (> 60); eGFR For Non-African Americans > 60 (> 60)
[2021-06-25 09:27] LABS: Lymphocytes # 3.4 K/mcL (0.6-4.6); Monocytes # 1.3 K/mcL (0.0-1.3); Neutrophils # 16.6 K/mcL (1.6-8.9); Platelet Estimate Increased (Normal); Reactive Lymphocytes Present (Not Present)
[2021-06-25] MEDS: Magic Mouthwash 10 ML UD Cup PO SCH ×3 (09:56→18:18)
[2021-06-25] MEDS: Furosemide 40 MG/4 ML VIAL IVP ONE ×2 (09:56→09:58)
[2021-06-25] MEDS: Gabapentin 300 MG CAPSULE PO SCH ×2 (09:58→14:50)
[2021-06-25] MEDS: Dexamethasone Sodium Phos/PF 10 MG/ML VIAL IVP SCH (09:58)
[2021-06-25] MEDS: Insulin DETEMIR 100 UNIT/ML X5UNITS SUBQ SCH (09:59)
[2021-06-25] MEDS: lisinopriL 10 MG TABLET PO SCH (09:59)
[2021-06-25] MEDS: Nystatin POWDER 30 GM BOTTLE TP SCH ×2 (10:00→14:49)
[2021-06-25] MEDS: Insulin LISPRO 300 UNITS/3 ML VIAL SUBQ SCH ×6 (10:02→18:20)
[2021-06-25 16:20] LABS: Estimated Average Glucose 289 mg/dl; Hemoglobin A1C 11.7 %
[2021-06-25 16:33] VITALS: O2SAT 90
[2021-06-25] MEDS ORDERED: Furosemide 40 MG/4 ML VIAL IVP SCH (21:00)
== END 2021-06-25 19:44 | disposition home or self-care (01) | DRG 137 ==
LOC: EMEROOARM 12:05 → SUATTDRO 17:05 → 2NENU 17:05
PROVIDERS: ADMIT Internal Medicine; ATTEND Family Medicine